=== PATIENT | female | born 1940 | race Caucasian/White ===

== ENCOUNTER 2019-08-25 09:31 | Inpatient (IN) | payer MEDICARE ==
[2019-08-25 11:15] LABS: APPEARANCE,URINE CLEAR; BILIRUBIN,URINE NEGATIVE (NEGATIVE); COLOR,URINE YELLOW; GLUCOSE, URINE NEGATIVE (NEGATIVE); KETONES,URINE NEGATIVE (NEGATIVE); LEUKOCYTE ESTERASE,URINE NEGATIVE (NEGATIVE); NITRITE,URINE NEGATIVE (NEGATIVE); PROTEIN,URINE NEGATIVE (NEGATIVE); URINE SPECIFIC GRAVITY 1.011; UROBILINOGEN,URINE NEGATIVE mg/dL (<2.0)
[2019-08-25] MEDS ORDERED: OXYCODONE-ACETAMINOPHEN 5-325 MG TABLET PO ONE (11:53)
[2019-08-25 12:09] LABS: ABSOLUTE BASOPHILS # (AUTO) 0.1 10^3/uL (0.0-0.2); ABSOLUTE LYMPHOCYTES (AUTO) 1.2 10^3/uL (0.5-4.7); ABSOLUTE MONOCYTES (AUTO) 0.9 10^3/uL (0.1-1.4); ABSOLUTE NEUT (AUTO) 10.6 10^3/uL (1.7-8.2); BASOPHILS % (AUTO) 0.4 % (0-2); EOSINOPHILS % (AUTO) 0.3 % (0-6); HEMOGLOBIN 14.5 g/dL (12.0-15.5); LYMPHOCYTES % (AUTO) 9.2 % (13-45); MEAN CORPUSCULAR HEMOGLOBIN 29.6 pg (27.0-33.4); MEAN CORPUSCULAR HGB CONC 33.7 g/dL (32.0-36.0); MEAN CORPUSCULAR VOLUME 88 fl (80-97); MONOCYTES % (AUTO) 7.1 % (3-13); PLATELET COUNT 374 10^3/uL (150-450); RED BLOOD COUNT 4.89 10^6/uL (3.72-5.28); RED CELL DISTRIBUTION WIDTH 14.4 % (11.5-14.0); TOTAL CELLS COUNTED % (AUTO) 100 %; WHITE BLOOD COUNT 12.7 10^3/uL (4.0-10.5)
[2019-08-25 12:47] LABS: ALBUMIN 4.1 g/dL (3.5-5.0); ALKALINE PHOSPHATASE 110 U/L (38-126); ANION GAP 8 (5-19); ASPARTATE AMINO TRANSFERASE 23 U/L (14-36); BILIRUBIN,DIRECT 0.1 mg/dL (0.0-0.4); BILIRUBIN,TOTAL 0.9 mg/dL (0.2-1.3); BLOOD UREA NITROGEN 12 mg/dL (7-20); CALCIUM 9.4 mg/dL (8.4-10.2); CARBON DIOXIDE 30 mmol/L (22-30); CHLORIDE 102 mmol/L (98-107); GLUCOSE 91 mg/dL (75-110); POTASSIUM 3.9 mmol/L (3.6-5.0); TOTAL PROTEIN 7.1 g/dL (6.3-8.2)
--- NOTE | 2019-08-25 13:04 | ER Document Report ---
Entered by ELISE CHÁVEZ SCRIBE 08/25/19 1149 Acting as scribe for:KAYLI ENRIQUEZ MD ED General - General Information source: Patient <KAYLI ENRIQUEZ - Last Filed: 08/25/19 17:18> <POONBARBIE - Last Filed: 08/25/19 19:54> - General Chief Complaint: Back Pain Stated Complaint: BACK PAIN Time Seen by Provider: 08/25/19 11:34 Primary Care Provider: SHOSHANA RIGGS NP [Primary Care Provider] - Follow up as needed Notes: Patient is a 78-year-old female who presents to the emergency department today with complaints of pain that originates in her buttocks and radiates down her bilateral legs. Patient states she has had this pain for 2 to 3 weeks. Prior to the pain beginning, the patient "[facility]" which is apparently quite a long distance and much more activity than she has ever done before. This was at the " at [facility]" fall festival. Patient was seen at an urgent care one week ago for this and was started on baclofen, gabapentin, and a steroid dose pack. Patient states she received minimal if any relief from the prednisone. She stopped taking the gabapentin on August 22, 2019 due to hallucinations. She did continue to take the baclofen. Her pain has been getting progressively worse, she has been using a walker but is unable to walk at all at this time due to her pain. (KAYLI ENRIQUEZ) - Related Data Allergies/Adverse Reactions: No Known Allergies Allergy (Unverified 08/25/19 09:47) Past Medical History - General Information source: Patient - Social History Smoking Status: Never Smoker Cigarette use (# per day): No Frequency of alcohol use: None Drug Abuse: None Lives with: Family Family History: Reviewed & Not Pertinent Patient has suicidal ideation: No Patient has homicidal ideation: No Past Surgical History: Reports: Hx Cholecystectomy, Hx Orthopedic Surgery - Right knee replacement May 2017, Left knee replacement March 2018 <KAYLI ENRIQUEZ - Last Filed: 08/25/19 17:18> Review of Systems - Review of Systems Constitutional: No symptoms reported EENT: No symptoms reported Cardiovascular: No symptoms reported Respiratory: No symptoms reported Gastrointestinal: No symptoms reported Genitourinary: No symptoms reported Female Genitourinary: No symptoms reported Musculoskeletal: See HPI, Other - buttock pain, bilateral leg pain Skin: No symptoms reported Hematologic/Lymphatic: No symptoms reported Neurological/Psychological: No symptoms reported -: Yes All other systems reviewed and negative <KAYLI ENRIQUEZ - Last Filed: 08/25/19 17:18> Physical Exam <KAYLI ENRIQUEZ - Last Filed: 08/25/19 17:18> - Vital signs Vitals: Temp Pulse BP Pulse Ox 97.9 F 67 194/82 H 100 08/25/19 09:48 08/25/19 09:48 08/25/19 09:48 08/25/19 09:48 - Notes Notes: Physical Exam: General: Alert, appears uncomfortable. HEENT: Normocephalic. Atraumatic. PERRL. Extraocular movements intact. Oropharynx clear. Neck: Supple. Non-tender. Respiratory: No respiratory distress. Clear and equal breath sounds bilaterally. Cardiovascular: Regular rate and rhythm. Abdominal: Normal Inspection. Non-tender. No distension. Normal Bowel Sounds. Back: No gross abnormalities. Extremities: Moves all four extremities. Upper extremities: Normal inspection. Normal ROM. Lower extremities: Right lateral thigh tenderness with palpation. Right anterior leg musculature tenderness with palpation. Left anterior thigh tenderness with palpation. Left thigh tenderness over the greater trochanter. No real tenderness over the SI joints or buttocks. Neurological: Normal cognition. AAOx4. Normal speech. Psychological: Normal affect. Normal Mood. Skin: Warm. Dry. Normal color. (KAYLI ENRIQUEZ) Course - Laboratory Result Diagrams: 08/25/19 11:59 08/25/19 11:59 - Diagnostic Test Radiology reviewed: Reports reviewed - MRI shows multilevel degenerative changes without any acute changes or significant stenoses. The gallbladder does appear distended with a large gallstone. - Transfer of Care Care transferred to following provider: Dr. Poon <KAYLI ENRIQUEZ - Last Filed: 08/25/19 17:18> - Laboratory Result Diagrams: 08/25/19 11:59 08/25/19 11:59 <BARBIE POON - Last Filed: 08/25/19 19:54> - Re-evaluation Re-evalutation: 08/25/19 14:23 Multiple family members are in the room at this time. They are reporting the patient has been hallucinating for the last few days. They state that even now in the room the patient is hallucinating. When I asked the patient specifically what she is seeing, she states that she can anticipate me coming in the room before coming in. That she sees people come in the room that that are close and red velvet who ended up going back out of the room. She allegedly began having these hallucinations on Sunday and stopped the Neurontin on that day. She had been prescribed a tapering dose of prednisone on last Sunday, along with baclofen and Neurontin. The Neurontin was a low dose at 300 mg every 8. She continues to take the baclofen. Her spouse reports last night she was hallucinating, and she reports seeing carpet in the lluvia and other nonsensical things. The daughter reports that the patient was incontinent of urine 3 times last night. She was complaining that she could not feel her legs in the ambulance ride to the hospital. Current physical exam findings do not support these complaints. They are adamant that she cannot go back home with these problems. 08/25/19 17:10 The family wanted to demonstrate for me how the patient is unable to walk, they tried to get her up to a walking position without success. They got her to sit on the edge of the bed with considerable assistance, and trying to get her up to a standing position was not possible due to the pain the patient was having. The patient stated that despite the Percocet the pain was so severe she was unable to stand up even with the assistance. She does live in a home that has several stairs to go up to get inside. 08/25/19 17:20 (KAYLI ENRIQUEZ) 08/25/19 19:50 Patient reevaluated at this time. She is unable to bear weight. Gallbladder ultrasound showed only presence of a stone with no signs of acute inflammatory changes. Findings are discussed with the on-call hospitalist Dr. Juliano Cabrera who agrees to admit patient for pain management and physiotherapy. (BARBIE ZENG) - Vital Signs Vital signs: Temp Pulse Resp BP Pulse Ox 98.1 F 63 18 168/70 H 94 08/25/19 18:53 08/25/19 18:53 08/25/19 18:53 08/25/19 18:53 08/25/19 18:53 - Laboratory Laboratory results interpreted by me: 08/25/19 11:59 WBC 12.7 H RDW 14.4 H Lymph % (Auto) 9.2 L Absolute Neuts (auto) 10.6 H Seg Neutrophils % 83.0 H - Transfer of Care Notes: 08/25/19 17:18 Pending GB US and re-eval. I suspect she will be difficult to be discharged due to her inability to ambulate and c/o hallucinations. (KAYLI ENRIQUEZ) Discharge <KAYLI ENRIQUEZ - Last Filed: 08/25/19 17:18> - Discharge Admitting Provider: Rick (Hospitalist) <BARBIE POON - Last Filed: 08/25/19 19:54> - Discharge Clinical Impression: Overuse syndrome of legs, Sacral back pain, Ambulatory dysfunction Degenerated intervertebral disc Qualifiers: Spinal region: lumbar Qualified Code(s): M51.36 - Other intervertebral disc degeneration, lumbar region Condition: Stable Disposition: ADMITTED INPATIENT Referrals: SHOSHANA RIGGS EXECUTIVE ASSISTANT [Primary Care Provider] - Follow up as needed Scribe Attestation: 08/25/19 14:27 I personally performed the services described in the documentation, reviewed and edited the documentation which was dictated to the scribe in my presence, and it accurately records my words and actions. (KAYLI ENRIQUEZ) I personally performed the services described in the documentation, reviewed and edited the documentation which was dictated to the scribe in my presence, and it accurately records my words and actions.
[2019-08-25 13:48] LABS: CREATINE KINASE 86 U/L (30-135)
--- NOTE | 2019-08-25 16:12 | RADIOLOGY REPORT (SQ) ---
EXAM DESCRIPTION: MRI LUMBAR SPINE WITHOUT COMPLETED DATE/TIME: 08/25/2019 3:54 pm REASON FOR STUDY: Progressive neurological deficit, urinary incontin COMPARISON: None. TECHNIQUE: Sagittal and Axial imaging includes T1, T2, STIR and gradient echo sequences. Coronal T2/ HASTE imaging. LIMITATIONS: None. FINDINGS: VISUALIZED UPPER ABDOMEN: Limited evaluation. Distended gallbladder with 2.5 cm gallston e. SEGMENTATION: No transitional anatomy. The lowest well-developed disc space is labeled L5-S1. ALIGNMENT: Mild scoliosis. VERTEBRAE: Intact. BONE MARROW: No marrow replacement. Multilevel reactive endplate signal. DISC SIGNAL: Decreased height and signal. POSTERIOR ELEMENTS: Generally intact. No pars defect evident. HARDWARE: None in the spine. CORD AND CONUS: Normal in size and signal intensity. Conus at the appropriate level. SOFT TISSUES: No aortic aneurysm seen. No bulky retroperitoneal adenopathy or mass. No paraspinal mas s or fluid. L1-L2: Mild diffuse posterior disc bulge. Mild facet arthropathy. No significant spinal stenosis or exit foraminal stenosis. L2-L3: Mild diffuse posterior disc bulge. Mild to moderate facet arthropathy. No significant spinal stenosis. Mild right exit foraminal stenosis. L3-L4: Mild diffuse posterior disc bulge. Moderate facet arthropathy. Mild spinal stenosis and mode rate right exit foraminal stenosis. L4-L5: No significant disc bulge. Moderate facet arthropathy. No significant spinal stenosis. Bord enrrique exit foraminal stenosis. L5-S1: Mild diffuse posterior disc bulge. Mild facet arthropathy. No significant spinal stenosis. Mild to moderate bilateral exit foraminal stenosis. LOWER THORACIC: Incompletely imaged. No stenosis seen. SACRUM: Visualized upper sacrum intact. OTHER: No other significant findings. IMPRESSION: 1. MULTILEVEL CHRONIC DEGENERATIVE CHANGES DESCRIBED. NO APPARENT ACUTE FINDINGS. NO HIGH-GRADE STENOSIS. 2. GALLBLADDER APPEARS SOMEWHAT DISTENDED WITH A LARGE GALLSTONE. NOT COMPLETELY IMAGED. TECHNICAL DOCUMENTATION: JOB ID: [id number] [email or web address]- All Rights Reserved Reading location - IP/workstation name: [email or web address]
--- NOTE | 2019-08-25 19:22 | RADIOLOGY REPORT (SQ) ---
EXAM DESCRIPTION: U/S ABDOMEN LIMITED W/O DOP COMPLETED DATE/TIME: 08/25/2019 5:43 pm REASON FOR STUDY: Large gallstone,distended GB,leukocytosis COMPARISON: None. TECHNIQUE: Dynamic and static grayscale images acquired of the abdomen and recorded on PACS. Additio nal selected color Doppler and spectral images recorded. LIMITATIONS: Bowel gas. FINDINGS: PANCREAS: Obscured by bowel gas. LIVER: No masses. Echotexture increased consistent with fatty infiltration. LIVER VASCULATURE: Normal directional flow of the main portal vein and hepatic veins. GALLBLADDER: Multiple large gallstones measuring up to 2.5 cm. Moderate sludge. Normal gallbladder wall thickness. No pericholecystic fluid. ULTRASOUND-DETECTED CORRALES'S SIGN: Negative. INTRAHEPATIC DUCTS AND COMMON DUCT: CBD and intrahepatic ducts normal caliber. No filling defects. INFERIOR VENA CAVA: Normal flow. AORTA: No aneurysm identified. RIGHT KIDNEY: Normal size. Normal echogenicity. No solid or suspicious masses. No hydronephros is. No calcifications. PERITONEAL AND RIGHT PLEURAL SPACE: No ascites or effusions. OTHER: No other significant findings. IMPRESSION: Multiple large gallstones measuring up to 2.5 cm. Moderate sludge. Normal gallbladder w all thickness. No pericholecystic fluid. Fatty liver. TECHNICAL DOCUMENTATION: JOB ID: [id number] [id number] [employer]- All Rights Reserved Reading location - IP/workstation name: [email or web address]
[2019-08-25] MEDS ORDERED: ACETAMINOPHEN 325 MG TABLET PO PRN (19:50)
[2019-08-25] MEDS ORDERED: MAGNESIUM HYDROXIDE SUSP 30 ML UDCUP PO PRN (19:50)
[2019-08-25] MEDS ORDERED: MAG HYDROX/AL HYDROX/SIMETH SUSP 30 ML UDCUP PO PRN (19:50)
[2019-08-25] MEDS: HEPARIN SOD (PORCINE) 5,000 UNIT/ML 1 ML VIAL SUBCUT SCH (22:28)
[2019-08-25] MEDS: DOCUSATE SODIUM 100 MG CAPSULE PO SCH (22:30)
[2019-08-26] MEDS ORDERED: INFLUENZA QUAD (6MOS+) 2019-20 VAC 0.5 ML SYR IM ONE (01:23)
[2019-08-26] MEDS: HEPARIN SOD (PORCINE) 5,000 UNIT/ML 1 ML VIAL SUBCUT SCH ×3 (06:07→21:54)
--- NOTE | 2019-08-26 06:46 | PDOC H&P ---
History of Present Illness Admission Date/PCP: 08/25/19 19:58 SHOSHANA RIGGS NP Patient complains of: Bilateral leg pain History of Present Illness: JACK URIBE is a 78 year old female with a medical history of hypertension, osteoarthritis and hypothyroidism. She presents with radiating lower back pain to the legs bilaterally and subsequent inability to bear weight or ambulate. She denies acute injury but has recently discontinued a trial of steroids and gabapentin secondary to hallucination. She is continue to take baclofen as needed. In the emergency room imaging reveals severe degenerative joint disease only however she is also found to have hypertensive urgency with a systolic blood pressure of 194/82 with tachycardia. She is referred to the hospitalist for observation. Past Medical History Cardiac Medical History: Reports: Hypertension Endocrine Medical History: Reports: Hypothyroidism Musculoskeltal Medical History: Reports: Arthritis Psychiatric Medical History: Denies: Depression Past Surgical History Past Surgical History: Reports: Cholecystectomy, Orthopedic Surgery - Right knee replacement May 2017, Left knee replacement March 2018 Social History Information Source: Patient, [facility] Records Lives with: Family Smoking Status: Never Smoker Electronic Cigarette use?: No Frequency of Alcohol Use: None Hx Recreational Drug Use: No Drugs: None Hx Prescription Drug Abuse: No - Advance Directive Resuscitation Status: Full Code Family History Family History: Hypertension Parental Family History Reviewed: Yes Children Family History Reviewed: Yes Sibling(s) Family History Reviewed.: Yes Medication/Allergy Home Medications: Baclofen [Baclofen 10 mg Tablet] 10 mg PO TID 08/26/19 Gabapentin [Neurontin 300 mg Capsule] 300 mg PO TID 08/26/19 Levothyroxine Sodium [Synthroid] 175 mcg PO QAM 08/26/19 Allergies/Adverse Reactions: No Known Allergies Allergy (Unverified 08/25/19 09:47) Review of Systems Constitutional: ABSENT: chills, fever(s), headache(s), weight gain, weight loss Eyes: ABSENT: visual disturbances Ears: ABSENT: hearing changes Cardiovascular: ABSENT: chest pain, dyspnea on exertion, edema, orthropnea, palpitations Respiratory: ABSENT: cough, hemoptysis Gastrointestinal: ABSENT: abdominal pain, constipation, diarrhea, hematemesis, hematochezia, nausea, vomiting Genitourinary: ABSENT: dysuria, hematuria Musculoskeletal: ABSENT: joint swelling Integumentary: ABSENT: rash, wounds Neurological: ABSENT: abnormal gait, abnormal speech, confusion, dizziness, focal weakness, syncope Psychiatric: ABSENT: anxiety, depression, homidical ideation, suicidal ideation Endocrine: ABSENT: cold intolerance, heat intolerance, polydipsia, polyuria Hematologic/Lymphatic: ABSENT: easy bleeding, easy bruising Physical Exam Vital Signs: Temp Pulse Resp BP Pulse Ox 98.3 F 59 L 16 151/61 H 98 08/25/19 23:50 08/25/19 23:50 08/25/19 23:50 08/25/19 23:50 08/25/19 23:50 Intake & Output 08/24/19 08/25/19 08/26/19 11:59 11:59 11:59 Output Total 730 Balance -730 Weight 79.9 kg 76.6 kg General appearance: PRESENT: cooperative, mild distress, well-developed, well- nourished Head exam: PRESENT: atraumatic, normocephalic Eye exam: PRESENT: conjunctiva pink, EOMI, PERRLA. ABSENT: scleral icterus Ear exam: PRESENT: normal external ear exam Mouth exam: PRESENT: moist, tongue midline Neck exam: ABSENT: carotid bruit, JVD, lymphadenopathy, thyromegaly Respiratory exam: PRESENT: clear to auscultation young. ABSENT: rales, rhonchi, wheezes Cardiovascular exam: PRESENT: RRR. ABSENT: diastolic murmur, rubs, systolic murmur Pulses: PRESENT: normal dorsalis pedis pul Vascular exam: PRESENT: normal capillary refill GI/Abdominal exam: PRESENT: normal bowel sounds, soft. ABSENT: distended, guarding, mass, organolmegaly, rebound, tenderness Rectal exam: PRESENT: deferred Extremities exam: PRESENT: full ROM, tenderness, +1 edema. ABSENT: calf tender ness, clubbing, pedal edema Musculoskeletal exam: PRESENT: full ROM - Limited by pain, tenderness. ABSENT: ambulatory, deformity, dislocation Neurological exam: PRESENT: alert, awake, oriented to person, oriented to place, oriented to time, oriented to situation, CN II-XII grossly intact. ABSENT: motor sensory deficit Psychiatric exam: PRESENT: appropriate affect, normal mood. ABSENT: homicidal ideation, suicidal ideation Skin exam: PRESENT: dry, intact, warm. ABSENT: cyanosis, rash Results Laboratory Results: 08/25/19 11:59 08/25/19 11:59 08/25/19 08/25/19 08/25/19 10:31 11:59 11:59 WBC 12.7 H RBC 4.89 Hgb 14.5 Hct 43.0 MCV 88 MCH 29.6 MCHC 33.7 RDW 14.4 H Plt Count 374 Seg Neutrophils % 83.0 H Sodium 139.9 Potassium 3.9 Chloride 102 Carbon Dioxide 30 Anion Gap 8 BUN 12 Creatinine 0.76 Est GFR ( Amer) > 60 Glucose 91 Calcium 9.4 Total Bilirubin 0.9 AST 23 Alkaline Phosphatase 110 Total Protein 7.1 Albumin 4.1 TSH Urine Color YELLOW Urine Appearance CLEAR Urine pH 6.0 Ur Specific Vevay 1.011 Urine Protein NEGATIVE Urine Glucose (UA) NEGATIVE Urine Ketones NEGATIVE Urine Blood NEGATIVE Urine Nitrite NEGATIVE Ur Leukocyte Esterase NEGATIVE Urine WBC (Auto) 1 Urine RBC (Auto) 08/25/19 08/25/19 11:59 11:59 WBC RBC Hgb Hct MCV MCH MCHC RDW Plt Count Seg Neutrophils % Sodium Potassium Chloride Carbon Dioxide Anion Gap BUN Creatinine Est GFR ( Amer) Glucose Calcium Total Bilirubin AST Alkaline Phosphatase Total Protein Albumin TSH 24.80 H Urine Color Cancelled Urine Appearance Cancelled Urine pH Cancelled Ur Specific Vevay Cancelled Urine Protein Cancelled Urine Glucose (UA) Cancelled Urine Ketones Cancelled Urine Blood Cancelled Urine Nitrite Cancelled Ur Leukocyte Esterase Cancelled Urine WBC (Auto) Cancelled Urine RBC (Auto) Cancelled 08/25/19 08/25/19 11:59 11:59 Creatine Kinase 86 CK-MB (CK-2) 3.13 Impressions: Lumbar Spine MRI 08/25/19 14:22 IMPRESSION: 1. MULTILEVEL CHRONIC DEGENERATIVE CHANGES DESCRIBED. NO APPARENT ACUTE FINDINGS. NO HIGH-GRADE STENOSIS. 2. GALLBLADDER APPEARS SOMEWHAT DISTENDED WITH A LARGE GALLSTONE. NOT COMPLETELY IMAGED. Abdomen Ultrasound 08/25/19 16:43 IMPRESSION: Multiple large gallstones measuring up to 2.5 cm. Moderate sludge. Normal gallbladder wall thickness. No pericholecystic fluid. Fatty liver. Assessment and Plan - Diagnosis (1) Hypertensive urgency Is this a current diagnosis for this admission?: Yes Plan: Outpatient regiment, optimize pain control, hydralazine and Lopressor PRN (2) Hypothyroidism Is this a current diagnosis for this admission?: Yes Plan: Follow-up TSH (3) Ambulatory dysfunction Is this a current diagnosis for this admission?: Yes Plan: Physical therapy evaluation (4) Degenerated intervertebral disc Qualifiers: Spinal region: lumbar Qualified Code(s): M51.36 - Other intervertebral disc degeneration, lumbar region Is this a current diagnosis for this admission?: Yes Plan: Trial IV Toradol (5) Sacral back pain Is this a current diagnosis for this admission?: Yes Plan: Trial Toradol, physical therapy, consider pain management consult. - Time Time Spent with patient: 15-24 minutes - Inpatient Certification Medical Necessity: Need Close Monitoring Due to Risk of Patient Decompensation
[2019-08-26 07:02] LABS: ABSOLUTE BASOPHILS # (AUTO) 0.1 10^3/uL (0.0-0.2); ABSOLUTE EOSINOPHILS # (AUTO) 0.1 10^3/uL (0.0-0.6); ABSOLUTE LYMPHOCYTES (AUTO) 1.2 10^3/uL (0.5-4.7); ABSOLUTE MONOCYTES (AUTO) 0.7 10^3/uL (0.1-1.4); ABSOLUTE NEUT (AUTO) 7.6 10^3/uL (1.7-8.2); BASOPHILS % (AUTO) 0.9 % (0-2); EOSINOPHILS % (AUTO) 1.4 % (0-6); HEMATOCRIT 39.6 % (36.0-47.0); HEMOGLOBIN 13.6 g/dL (12.0-15.5); LYMPHOCYTES % (AUTO) 12.6 % (13-45); MEAN CORPUSCULAR HEMOGLOBIN 30.3 pg (27.0-33.4); MEAN CORPUSCULAR HGB CONC 34.3 g/dL (32.0-36.0); MEAN CORPUSCULAR VOLUME 88 fl (80-97); MONOCYTES % (AUTO) 7.2 % (3-13); PLATELET COUNT 338 10^3/uL (150-450); RED BLOOD COUNT 4.48 10^6/uL (3.72-5.28); RED CELL DISTRIBUTION WIDTH 14.8 % (11.5-14.0); SEGMENTED NEUTROPHILS % (AUTO) 77.9 % (42-78); TOTAL CELLS COUNTED % (AUTO) 100 %; WHITE BLOOD COUNT 9.7 10^3/uL (4.0-10.5)
[2019-08-26] MEDS ORDERED: (PENDING PHARMACY ID) (Levothyroxine Sodium [Synthroid] 175 MCG) PO SCH (08:00)
[2019-08-26 08:41] LABS: FREE T3 1.42 pg/mL (2.77-5.27); FREE T4 (FREE THYROXINE) 0.38 ng/dL (0.78-2.19)
[2019-08-26] MEDS: LEVOTHYROXINE SODIUM 0.1 MG TABLET PO SCH (09:15)
[2019-08-26] MEDS: DOCUSATE SODIUM 100 MG CAPSULE PO SCH ×2 (09:15→17:38)
[2019-08-26] MEDS: LEVOTHYROXINE SODIUM 0.075 MG TABLET PO SCH (09:15)
[2019-08-26] MEDS: HYDRALAZINE HCL INJ/PF 20 MG/1 ML SDV IV PRN (09:16)
[2019-08-26] MEDS: LISINOPRIL 10 MG TABLET PO SCH (10:10)
--- NOTE | 2019-08-26 13:02 | PDOC PROGRESS REPORT ---
Subjective Progress Note for:: 08/26/19 Subjective:: JACK URIBE is a 78 year old female with a medical history of hypertension, osteoarthritis and hypothyroidism. She presents with radiating lower back pain to the legs bilaterally and subsequent inability to bear weight or ambulate. She denies acute injury but has recently discontinued a trial of steroids and gabapentin secondary to hallucination. She is continue to take baclofen as needed. In the emergency room imaging reveals severe degenerative joint disease only however she is also found to have hypertensive urgency with a systolic blood pressure of 194/82 with tachycardia. She is referred to the hospitalist for observation. 08/26/2019. No acute events overnight. Patient complaining of persistent low back pain. Denies any fever, chills, nausea, vomiting, diarrhea, constipation or any urinary symptoms. and daughter present at the room stating that patient has been nonambulatory due to worsening lower back pain and they would like her to be placed in the short-term rehab. Reason For Visit: HTN URGENCY, INTRACTABLE PAIN, GAIT DISFUNCTION Physical Exam Vital Signs: Temp Pulse Resp BP Pulse Ox 97.6 F 70 20 193/76 H 98 08/26/19 07:00 08/26/19 07:00 08/26/19 07:00 08/26/19 07:00 08/26/19 07:00 Intake & Output 08/25/19 08/26/19 08/27/19 06:59 06:59 06:59 Output Total 880 Balance -880 Weight 76.6 kg General appearance: PRESENT: obese Eye exam: PRESENT: conjunctiva pink, EOMI, PERRLA. ABSENT: scleral icterus Respiratory exam: PRESENT: clear to auscultation young. ABSENT: rales, rhonchi, wheezes Cardiovascular exam: PRESENT: RRR. ABSENT: diastolic murmur, rubs, systolic murmur GI/Abdominal exam: PRESENT: normal bowel sounds, soft. ABSENT: distended, guarding, mass, organolmegaly, rebound, tenderness Musculoskeletal exam: PRESENT: tenderness - Diffuse lower back tenderness. Skin exam: PRESENT: dry, intact, warm. ABSENT: cyanosis, rash Results Laboratory Results: 08/26/19 06:35 08/25/19 11:59 08/25/19 08/26/19 08/26/19 11:59 06:35 06:35 WBC 9.7 RBC 4.48 Hgb 13.6 Hct 39.6 MCV 88 MCH 30.3 MCHC 34.3 RDW 14.8 H Plt Count 338 Seg Neutrophils % 77.9 TSH 24.80 H Free T4 0.38 L Free T3 pg/mL 1.42 L 08/25/19 08/25/19 11:59 11:59 Creatine Kinase 86 CK-MB (CK-2) 3.13 Impressions: Lumbar Spine MRI 08/25/19 14:22 IMPRESSION: 1. MULTILEVEL CHRONIC DEGENERATIVE CHANGES DESCRIBED. NO APPARENT ACUTE FINDINGS. NO HIGH-GRADE STENOSIS. 2. GALLBLADDER APPEARS SOMEWHAT DISTENDED WITH A LARGE GALLSTONE. NOT COMPLETELY IMAGED. Abdomen Ultrasound 08/25/19 16:43 IMPRESSION: Multiple large gallstones measuring up to 2.5 cm. Moderate sludge. Normal gallbladder wall thickness. No pericholecystic fluid. Fatty liver. Assessment and Plan - Diagnosis (1) Hypertensive urgency Is this a current diagnosis for this admission?: Yes Plan: Not optimized with improving since admission. Continue lisinopril 40 mg p.o. daily. Hydralazine and Lopressor PRN. Adjust dosage as needed. Outpatient PCP follow-up. (2) Hypothyroidism Is this a current diagnosis for this admission?: Yes Plan: Patient endorses remote history of thyroidectomy x >30 years. Does not remember if she had cancer or not. TSH 24.8, free T4 0.38, free T3 1.42. Patient reports compliance not sure if she is taking it properly. Stating TSH in April was around 10. Home meds are: Levothyroxine 175 MCG. Restart home meds. Outpatient PCP and endocrinology follow-up. (3) DJD (degenerative joint disease) Qualifiers: Spinal region: lumbosacral Spinal osteoarthritis complication: without myelopathy or radiculopathy Is this a current diagnosis for this admission?: Yes Plan: 08/25/2019. MRI lumbar spine: Multilevel chronic degenerative changes. No acute findings. No high-grade stenosis. PT/OT. Opioid and non-opioid analgesics. Minimize opioids to reduce risk of falling. (4) Ambulatory dysfunction Is this a current diagnosis for this admission?: Yes Plan: Due to severe DJD of lumbar spine. PT consulted. Possible outpatient short-term rehab. Discharge planning consulted.
--- NOTE | 2019-08-26 13:36 | RADIOLOGY REPORT (SQ) ---
EXAM DESCRIPTION: CT HEAD WITHOUT COMPLETED DATE/TIME: 08/26/2019 1:17 pm REASON FOR STUDY: AMS E03.8 OTHER SPECIFIED HYPOTHYROIDISM COMPARISON: None. TECHNIQUE: Axial images acquired through the brain without intravenous contrast. Images reviewed wi th bone, brain and subdural windows. Additional sagittal and coronal reconstructions were generated. Images stored on PACS. All CT scanners at this facility use dose modulation, iterative reconstruction, and/or weight based d osing when appropriate to reduce radiation dose to as low as reasonably achievable (ALARA). [facility]: Dose Right [facility]: CareDose [facility]: Dose Right [facility]: Teradose 4D [facility]: Smart [employer] RADIATION DOSE: CT Rad equipment meets quality standard of care and radiation dose reduction techniq ues were employed. CTDIvol: 48.5 mGy. DLP: 903 mGy-cm. mGy. LIMITATIONS: None. FINDINGS: VENTRICLES: Normal size and contour. CEREBRUM: No masses. No hemorrhage. No midline shift. No evidence for acute infarction. Few scatte red areas of low density in the white matter most likely chronic small vessel ischemic changes. CEREBELLUM: No masses. No hemorrhage. No alteration of density. No evidence for acute infarction. EXTRAAXIAL SPACES: No fluid collections. No masses. ORBITS AND GLOBE: No intra- or extraconal masses. Normal contour of globe without masses. CALVARIUM: No fracture. PARANASAL SINUSES: No fluid or mucosal thickening. SOFT TISSUES: No mass or hematoma. OTHER: No other significant finding. IMPRESSION: MILD CHRONIC MICROVASCULAR ISCHEMIA. NO ACUTE IMAGING FINDINGS IN THE BRAIN. EVIDENCE OF ACUTE STROKE: NO. COMMENT: Quality ID # [id number]: Final reports with documentation of one or more dose reduction techniques (e.g., Automated exposure control, adjustment of the mA and/or kV according to patient size, use of iterative reconstruction technique) TECHNICAL DOCUMENTATION: JOB ID: [id number] [employer]- All Rights Reserved Reading location - IP/workstation name: [email or web address]
[2019-08-26] MEDS ORDERED: BACLOFEN 10 MG TABLET PO SCH (14:00)
[2019-08-26] MEDS ORDERED: GABAPENTIN 300 MG CAPSULE PO SCH (14:00)
[2019-08-26] MEDS: LIDOCAINE 5% (700 MG) TRANSDERMAL ADH..PATCH TP SCH (14:21)
[2019-08-26] MEDS ORDERED: MECLIZINE HCL 12.5 MG TABLET PO PRN (14:34)
[2019-08-26] MEDS ORDERED: MECLIZINE HCL 12.5 MG TABLET PO ONE (15:30)
[2019-08-26] MEDS ORDERED: LORAZEPAM INJ 2 MG/1 ML VIAL IV ONE (17:00)
[2019-08-26] MEDS: KETOROLAC TROMETHAMINE INJ/PF 30 MG/1 ML SDV IV PRN (17:46)
[2019-08-27] MEDS: HEPARIN SOD (PORCINE) 5,000 UNIT/ML 1 ML VIAL SUBCUT SCH ×3 (05:29→21:40)
[2019-08-27] MEDS: LEVOTHYROXINE SODIUM 0.1 MG TABLET PO SCH (08:12)
[2019-08-27] MEDS: LEVOTHYROXINE SODIUM 0.075 MG TABLET PO SCH (08:12)
[2019-08-27] MEDS: LISINOPRIL 10 MG TABLET PO SCH (10:31)
[2019-08-27] MEDS: AMLODIPINE BESYLATE 5 MG TABLET PO SCH (10:32)
[2019-08-27] MEDS: LIDOCAINE 5% (700 MG) TRANSDERMAL ADH..PATCH TP SCH (10:32)
[2019-08-27] MEDS: CHOLECALCIFEROL (D3) 1,000 UNIT (25 MCG) TABLET PO SCH (10:32)
[2019-08-27] MEDS: DOCUSATE SODIUM 100 MG CAPSULE PO SCH ×2 (10:32→17:05)
--- NOTE | 2019-08-27 10:38 | PDOC PROGRESS REPORT ---
Subjective Progress Note for:: 08/27/19 Subjective:: JACK URIBE is a 78 year old female with a medical history of hypertension, osteoarthritis and hypothyroidism. She presents with radiating lower back pain to the legs bilaterally and subsequent inability to bear weight or ambulate. She denies acute injury but has recently discontinued a trial of steroids and gabapentin secondary to hallucination. She is continue to take baclofen as needed. In the emergency room imaging reveals severe degenerative joint disease only however she is also found to have hypertensive urgency with a systolic blood pressure of 194/82 with tachycardia. She is referred to the hospitalist for observation. 08/26/2019. No acute events overnight. Patient complaining of persistent low back pain. Denies any fever, chills, nausea, vomiting, diarrhea, constipation or any urinary symptoms. and daughter present at the room stating that patient has been nonambulatory due to worsening lower back pain and they would like her to be placed in the short-term rehab. 08/27/2019. No acute events overnight. Patient is still altered. Patient is alert and oriented x2, has difficulty remembering today, is able to hold a con versation however sometimes her conversation becomes nonsensical, back pain improving since being started on topical lidocaine, denies any fever, chills, nausea, vomiting, diarrhea, constipation or any urinary symptoms. Reason For Visit: HTN URGENCY, INTRACTABLE PAIN, GAIT DISFUNCTION Physical Exam Vital Signs: Temp Pulse Resp BP Pulse Ox 97.4 F 71 18 174/71 H 100 08/27/19 08:07 08/27/19 08:07 08/26/19 23:00 08/27/19 08:07 08/27/19 08:07 Intake & Output 08/26/19 08/27/19 08/28/19 06:59 06:59 06:59 Intake Total 702 Output Total 880 200 Balance -880 502 Weight 76.6 kg 76.6 kg General appearance: PRESENT: no acute distress, well-developed, well-nourished Respiratory exam: PRESENT: clear to auscultation young. ABSENT: rales, rhonchi, wheezes Cardiovascular exam: PRESENT: RRR. ABSENT: diastolic murmur, rubs, systolic murmur Pulses: PRESENT: normal dorsalis pedis pul GI/Abdominal exam: PRESENT: normal bowel sounds, soft. ABSENT: distended, guarding, mass, organolmegaly, rebound, tenderness Musculoskeletal exam: PRESENT: tenderness - Diffuse lower back tenderness. Neurological exam: PRESENT: alert, awake, oriented to person, oriented to place, CN II-XII grossly intact, motor sensory deficit Skin exam: PRESENT: dry, intact, warm. ABSENT: cyanosis, rash Results Laboratory Results: 08/26/19 06:35 08/25/19 11:59 08/25/19 08/25/19 11:59 11:59 Creatine Kinase 86 CK-MB (CK-2) 3.13 Impressions: Lumbar Spine MRI 08/25/19 14:22 IMPRESSION: 1. MULTILEVEL CHRONIC DEGENERATIVE CHANGES DESCRIBED. NO APPARENT ACUTE FINDINGS. NO HIGH-GRADE STENOSIS. 2. GALLBLADDER APPEARS SOMEWHAT DISTENDED WITH A LARGE GALLSTONE. NOT COMPLETELY IMAGED. Abdomen Ultrasound 08/25/19 16:43 IMPRESSION: Multiple large gallstones measuring up to 2.5 cm. Moderate sludge. Normal gallbladder wall thickness. No pericholecystic fluid. Fatty liver. Head CT 08/26/19 00:00 IMPRESSION: MILD CHRONIC MICROVASCULAR ISCHEMIA. NO ACUTE IMAGING FINDINGS IN THE BRAIN. EVIDENCE OF ACUTE STROKE: NO. Assessment and Plan - Diagnosis (1) Altered mental status Qualifiers: Altered mental status type: disorientation Qualified Code(s): R41.0 - Disorientation, unspecified Is this a current diagnosis for this admission?: Yes Plan: Acute mental status changes. Could be medication induced as patient was started on baclofen and gabapentin very recently. Presented with TSH of 24. Unsure if this could be the reason for her altered mental status. Yesterday she was complaining of disequilibrium. On physical examination no vertigo or any focal neurological deficits appreciated. CT head on admission negative. Hold gabapentin and baclofen. We will get MRI/MRA brain to rule out any stroke. Continue fall, seizure precautions. Avoid benzos, opiates or any [employer] affecting meds. (2) Hypertensive urgency Is this a current diagnosis for this admission?: Yes Plan: Improving. Not optimized with improving since admission. Home meds are lisinopril 40 mg p.o. daily. Continue lisinopril 40 mg p.o. daily, amlodipine 5 mg daily. Hydralazine and Lopressor PRN. Adjust dosage as needed. Outpatient PCP follow-up. (3) Hypothyroidism Is this a current diagnosis for this admission?: Yes Plan: Patient endorses remote history of thyroidectomy x >30 years. Does not remember if she had cancer or not. TSH 24.8, free T4 0.38, free T3 1.42. Patient reports compliance not sure if she is taking it properly. Stating TSH in April was around 10. Home meds are: Levothyroxine 175 MCG. Restart home meds. Outpatient PCP and endocrinology follow-up. (4) DJD (degenerative joint disease) Qualifiers: Spinal region: lumbosacral Spinal osteoarthritis complication: without myelopathy or radiculopathy Is this a current diagnosis for this admission?: Yes Plan: 08/25/2019. MRI lumbar spine: Multilevel chronic degenerative changes. No acute findings. No high-grade stenosis. PT/OT. Opioid and non-opioid analgesics. Minimize opioids to reduce risk of falling. (5) Ambulatory dysfunction Is this a current diagnosis for this admission?: Yes Plan: Due to severe DJD of lumbar spine. PT consulted. Possible outpatient short-term rehab. Discharge planning consulted.
[2019-08-27] MEDS ORDERED: LORAZEPAM INJ 2 MG/1 ML VIAL IV ONE (11:00)
--- NOTE | 2019-08-27 12:09 | RADIOLOGY REPORT (SQ) ---
EXAM DESCRIPTION: MRA HEAD WITHOUT COMPLETED DATE/TIME: 08/27/2019 11:57 am REASON FOR STUDY: confusion E03.8 OTHER SPECIFIED HYPOTHYROIDISM COMPARISON: None. TECHNIQUE: Axial 3-D [id number] acquisition imaging performed through the brain in the area of t he [place]. Images reformatted using 3-D MIPS. LIMITATIONS: None. FINDINGS: SOURCE IMAGES: No unexpected findings on source images. No large masses. 3-D MIP: No aneurysm. No occlusions. No significant stenosis. OTHER: No other significant finding. IMPRESSION: NORMAL MRA OF THE [place] OF [place]. TECHNICAL DOCUMENTATION: JOB ID: [id number] [employer]- All Rights Reserved Reading location - IP/workstation name: [email or web address]
--- NOTE | 2019-08-27 12:09 | RADIOLOGY REPORT (SQ) ---
EXAM DESCRIPTION: MRI HEAD WITHOUT COMPLETED DATE/TIME: 08/27/2019 11:57 am REASON FOR STUDY: Confusion E03.8 OTHER SPECIFIED HYPOTHYROIDISM COMPARISON: CT brain dated 08/26/2019 TECHNIQUE: Multiplanar imaging includes non-contrasted T1, T2, FLAIR, and diffusion with ADC map seq uences. Images stored on PACS. LIMITATIONS: None. FINDINGS: ANATOMY: No anomalies. Normal vascular flow voids. Pituitary fossa normal. CSF SPACES: Normal in size and contour. No hemorrhage. CEREBRUM: Sulci and gyri normal in size and contour. Normal white matter signal on FLAIR imaging. No evidence of hemorrhage, mass, or extraaxial fluid collection. There is a small CSF cyst in the late ral aspect of the right basal ganglia. POSTERIOR FOSSA: No signal alteration. No hemorrhage. No edema, masses or mass effect. Internal doug tory canals, cerebello-pontine angles, mastoids normal. DIFFUSION IMAGING: Negative for acute or sub-acute infarction. ORBITS: No masses. Globes normal. PARANASAL SINUSES: No fluid levels. Mucosa normal. OTHER: No other significant finding. IMPRESSION: Age-appropriate MRI of the brain without contrast. EVIDENCE OF ACUTE STROKE: NO. TECHNICAL DOCUMENTATION: JOB ID: [id number] [employer]- All Rights Reserved Reading location - IP/workstation name: [email or web address]
--- NOTE | 2019-08-27 18:07 | Physician Advisory Note ---
Physician Advisor ProgressNote .: Pursuant to the plan for Marla Briggs, I have reviewed the medical record for this patient. Physician Advisor Statement: Attending, please clarify in documentation: 1. How much of her current findings are acute, & what is her baseline functioning: - mental function - any confusion or memory impairment at baseline? any disorientation at baseline? Ever had hallucinations before? - physical function - - incontinence/urinary retention - is this new? likely due to specific recent med, or due to constipation from recent med, or ...? *Please comment each day on that day's function r.e. each of these issues that you consider a problem needing hospital care/monitoring. 2. Dx for her confusion -can you be more specific than "disorientation/AMS" ? Such as: (A) "acute toxic encephalopathy due to " [a particular med], or (B) "acute metabolic encephalopathy due to ____" [uncontrolled hypothyroidism? infxn? urinary retention? delirium due to ? ...], or (C) "delirium due to underlying psychiatric (dementia or emotional) disorder, without encephalopathy"?, or ....? - What is felt to be most likely underlying cause of her presenting confusion? (if not already answered w/above) - Is her current mental status worsening 08/27 likely due to this same underlying issue, or a lethargy side effect of Ativan, or ...? 3. Muscle weakness, generalized - Acute or Chronic? Is this another issue that concerns you? Likely dx/cause? 4. Pain in BLEs - what is likely dx/cause? 5. Overall, each day, please make it clear which of her current clinical issues CONCERN you, and which are simply needing SNF level care at that point, i.e. Why is she not stable for transfer out of hospital at this time (Reviewers aren't allowed to infer your thinking - attg must spell it out.) - WIth these add'l info documented, pt should be appropriate for Inpt status by Medicare criteria. Info from non-drs involved in case, which attg could include & comment on in his notes r.e. what he considers concerning/pertinent: - 78yo female who underwent TKAs in 2017 & 2018 (usually quite functional, walked stairs the day after her TKA in March), [place] to get [place]. 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 Stopped gabapentin 08/22 due to hallucinations developing, but continued baclofen until adm. Developed urinary incontinence. Pain cont'd to worsen 'til unable to walk even w/walker, or even bear wt. Found to have tremendously high TSH 24.8, very low T3 & T4, severe HTN (?due to pain or ...?), but CK WNL. Tender legs/thighs, having hallucinations, urinary retention -> 730ml urine w/cath at 10:40 on 08/25. - Today, 08/27, nurse verbally reports pt is still having hallucinations, & has needed Hanks placed (11:01AM) due to urinary retention. - Nursing notes indicate pt was oriented to person & place on 08/26 AM, but less oriented - only to person - on 08/27 AM. - Nursing note 08/27 AM prior to MRI head states "per , very confused today". - PT on 08/26 found pt only able to stand, not take steps. "Generalized muscle weakness", Pain was 5/5 on 08/26 BLEs & worsened w/movement, Rt hip ROM limited due to pain. - PT found pt less functional on 08/27 than on 08/26 - lethargic, unable to sit unsupported, now unable to stand at all, balance & endurance now poor instead of fair. - Pt given Ativan 0.5mg IV "NOW" on 08/26 at 17:00 - reason? - Pt given Ativan 1mg IV "NOW" on 08/27 at 11:00 for toleration of MRI head (claustrophobic) per nurse. Thanks for all you do! CK Per [employer]: Baclofen can produce adverse effects including [employer] depression, hallucinations (visual or auditory), drowsiness, dizziness, muscle weakness, confusion, impaired coordination, fatigue, ataxia, constipation, resp dep, hypotension. Gabapentin can produce adverse effects including somnolence, ataxia, fatigue, abnormal thinking, amnesia, constipation, back pain, dizziness, tremor, nystagmus. Prednisone can cause steroid myopathy, steroid psychosis, HTN, dizziness/vertigo. Hypothyroidism can produce fatigue, constipation, myopathy (including proximal muscle weakness, cramps, myalgias, high CK), cognitive dysfunction, disorientation, peripheral neuropathy, among other things.
[2019-08-27] MEDS: KETOROLAC TROMETHAMINE INJ/PF 30 MG/1 ML SDV IV PRN (18:49)
[2019-08-28 03:59] LABS: APPEARANCE,URINE CLEAR; BILIRUBIN,URINE NEGATIVE (NEGATIVE); COLOR,URINE AMBER; GLUCOSE, URINE NEGATIVE (NEGATIVE); KETONES,URINE NEGATIVE (NEGATIVE); LEUKOCYTE ESTERASE,URINE SMALL (NEGATIVE); NITRITE,URINE NEGATIVE (NEGATIVE); PROTEIN,URINE NEGATIVE (NEGATIVE); URINE SPECIFIC GRAVITY 1.026
[2019-08-28] MEDS: HEPARIN SOD (PORCINE) 5,000 UNIT/ML 1 ML VIAL SUBCUT SCH (05:17)
[2019-08-28 06:43] LABS: ABSOLUTE EOSINOPHILS # (AUTO) 0.4 10^3/uL (0.0-0.6); ABSOLUTE LYMPHOCYTES (AUTO) 1.3 10^3/uL (0.5-4.7); ABSOLUTE MONOCYTES (AUTO) 0.8 10^3/uL (0.1-1.4); ABSOLUTE NEUT (AUTO) 5.8 10^3/uL (1.7-8.2); BASOPHILS % (AUTO) 0.6 % (0-2); EOSINOPHILS % (AUTO) 5.3 % (0-6); HEMATOCRIT 36.6 % (36.0-47.0); HEMOGLOBIN 12.7 g/dL (12.0-15.5); LYMPHOCYTES % (AUTO) 15.7 % (13-45); MEAN CORPUSCULAR HEMOGLOBIN 30.4 pg (27.0-33.4); MEAN CORPUSCULAR HGB CONC 34.7 g/dL (32.0-36.0); MEAN CORPUSCULAR VOLUME 87 fl (80-97); MONOCYTES % (AUTO) 9.4 % (3-13); PLATELET COUNT 306 10^3/uL (150-450); RED BLOOD COUNT 4.18 10^6/uL (3.72-5.28); RED CELL DISTRIBUTION WIDTH 14.7 % (11.5-14.0); TOTAL CELLS COUNTED % (AUTO) 100 %; WHITE BLOOD COUNT 8.4 10^3/uL (4.0-10.5)
[2019-08-28 07:05] LABS: ALBUMIN 3.2 g/dL (3.5-5.0); ALKALINE PHOSPHATASE 85 U/L (38-126); ANION GAP 11 (5-19); ASPARTATE AMINO TRANSFERASE 24 U/L (14-36); BILIRUBIN,DIRECT 0.1 mg/dL (0.0-0.4); BILIRUBIN,TOTAL 0.9 mg/dL (0.2-1.3); BLOOD UREA NITROGEN 22 mg/dL (7-20); CALCIUM 8.6 mg/dL (8.4-10.2); CARBON DIOXIDE 24 mmol/L (22-30); CHLORIDE 100 mmol/L (98-107); GLUCOSE 85 mg/dL (75-110); POTASSIUM 3.8 mmol/L (3.6-5.0); TOTAL PROTEIN 5.9 g/dL (6.3-8.2)
[2019-08-28] MEDS: LEVOTHYROXINE SODIUM 0.1 MG TABLET PO SCH (07:55)
[2019-08-28] MEDS: LEVOTHYROXINE SODIUM 0.075 MG TABLET PO SCH (07:55)
[2019-08-28] MEDS: DOCUSATE SODIUM 100 MG CAPSULE PO SCH (09:38)
[2019-08-28] MEDS: CHOLECALCIFEROL (D3) 1,000 UNIT (25 MCG) TABLET PO SCH (09:38)
[2019-08-28] MEDS: AMLODIPINE BESYLATE 5 MG TABLET PO SCH (09:38)
[2019-08-28] MEDS: LIDOCAINE 5% (700 MG) TRANSDERMAL ADH..PATCH TP SCH (09:39)
[2019-08-28] MEDS: LISINOPRIL 10 MG TABLET PO SCH (09:39)
[2019-08-28] MEDS: KETOROLAC TROMETHAMINE INJ/PF 30 MG/1 ML SDV IV PRN (09:41)
--- NOTE | 2019-08-28 12:11 | PDOC TRANSFER SUMMARY ---
General Admission Date/PCP: 08/25/19 19:58 SHOSHANA RIGGS NP Resuscitation Status: Full Code - Transfer Diagnosis (1) Altered mental status Is this a current diagnosis for this admission?: Yes (2) Hypertensive urgency Is this a current diagnosis for this admission?: Yes (3) Hypothyroidism Is this a current diagnosis for this admission?: Yes (4) DJD (degenerative joint disease) Is this a current diagnosis for this admission?: Yes (5) Ambulatory dysfunction Is this a current diagnosis for this admission?: Yes (6) Urinary retention Is this a current diagnosis for this admission?: Yes (7) Cholelithiasis Is this a current diagnosis for this admission?: Yes - Transfer Medications Home Medications: Baclofen [Baclofen 10 mg Tablet] 10 mg PO TID 08/26/19 Gabapentin [Neurontin 300 mg Capsule] 300 mg PO Q8 08/26/19 Levothyroxine Sodium [Synthroid] 175 mcg PO Q6AM 08/26/19 Transfer Medications: Current Medications Acetaminophen (Tylenol 325 Mg Tablet) 650 mg PO Q4HP PRN PRN Reason: FOR PAIN OR TEMP Stop: 09/24/19 19:49 Al Hydrox/Mg Hydrox/Simethicone (Maalox Plus Susp 30 Udcup) 30 ml PO Q6HP PRN PRN Reason: HEARTBURN Stop: 09/24/19 19:49 Amlodipine Besylate (Norvasc 5 Mg Tablet) 5 mg PO DAILY CORDELL Stop: 09/26/19 09:59 Last Admin: 08/28/19 09:38 Dose: 5 mg Documented by: Cholecalciferol (Vitamin D3 1000 Unit Tablet) 2,000 unit PO DAILY CORDELL Stop: 09/26/19 09:59 Last Admin: 08/28/19 09:38 Dose: 2,000 unit Documented by: Docusate Sodium (Colace 100 Mg Capsule) 100 mg PO BID CORDELL Stop: 09/24/19 20:59 Last Admin: 08/28/19 09:38 Dose: 100 mg Documented by: Heparin Sodium (Porcine) (Heparin Inj 5,000 Units/Ml 1 Ml Vial) 5,000 unit SUBCUT Q8 CORDELL Stop: 09/24/19 21:59 Last Admin: 08/28/19 05:17 Dose: 5,000 unit Documented by: Hydralazine HCl (Apresoline Inj/Pf 20 Mg/1 Ml Sdv) 10 mg IV Q6HP PRN PRN Reason: Sbp>160 Stop: 09/24/19 19:53 Last Admin: 08/26/19 09:16 Dose: 10 mg Documented by: Ketorolac Tromethamine (Toradol Inj/Pf 30 Mg/1 Ml Sdv) 15 mg IV Q6HP PRN PRN Reason: FOR PAIN SCALE 3-5 Stop: 08/30/19 19:49 Last Admin: 08/28/19 09:41 Dose: 15 mg Documented by: Levothyroxine Sodium (Synthroid 0.1 Mg Tablet) 0.1 mg PO QAM CORDELL Stop: 09/25/19 07:59 Last Admin: 08/28/19 07:55 Dose: 0.1 mg Documented by: Levothyroxine Sodium (Synthroid 0.075 Mg Tablet) 0.075 mg PO QAM COUNTS INCLUDE 234 BEDS AT THE [facility] Stop: 09/25/19 07:59 Last Admin: 08/28/19 07:55 Dose: 0.075 mg Documented by: Lidocaine (Lidoderm 5% (700 Mg) Transdermal Patch) 2 patch TP DAILY CORDELL Stop: 09/25/19 13:59 Last Admin: 08/28/19 09:39 Dose: 2 patch Documented by: Lisinopril (Prinivil 10 Mg Tablet) 40 mg PO DAILY CORDELL Stop: 09/25/19 09:59 Last Admin: 08/28/19 09:39 Dose: 40 mg Documented by: Magnesium Hydroxide (Milk Of Magnesia 30 Ml Udcup) 30 ml PO HSP PRN PRN Reason: FOR CONSTIPATION Stop: 09/24/19 19:49 Meclizine HCl (Antivert 12.5 Mg Tablet) 12.5 mg PO Q8HP PRN PRN Reason: DIZZINESS Stop: 09/25/19 14:33 - Allergies Allergies/Adverse Reactions: No Known Allergies Allergy (Unverified 08/25/19 09:47) Hospital Course Hospital Course: (1) Altered mental status Significant improvement. Patient back to baseline. Acute toxic encephalopathy encephalopathy with perceptual hallucination most likely caused by by recent initiation of baclofen and gabapentin for back pain. She keeps saying that she feels like she is going to fall while laying supine in bed At baseline patient is ambulatory and being in independent life. TSH on presentation 24. Unsure if this could be the reason for her altered mental status. On physical examination no vertigo or any focal neurological deficits appreciated. CTA/MRI/MRA head negative for any acute changes except for chronic ischemic changes. Patient was started on fall, seizure precaution and baclofen and gabapentin were held. Patient was also complaining of being anxious, 0.5 mg of IV Ativan was given with no significant improvement of her anxiety. She also received 1 mg of IV Ativan prior to MRI/MRI head due to claustrophobia. (2) Hypertensive urgency Improving. Not optimized with improving since admission. Home meds are lisinopril 40 mg p.o. daily. Started on CARMELA inhibitor 40 mg daily, amlodipine 5 mg daily. Received 1 dose of hydralazine today. Systolic blood pressure on discharge 120. Please continue monitoring vitals, medication be to be readjusted as needed. Follow-up with PCP as outpatient. (3) Hypothyroidism Patient endorses remote history of thyroidectomy x >30 years. Does not remember if she had cancer or not. TSH 24.8, free T4 0.38, free T3 1.42. Patient reports compliance not sure if she is taking it properly. Stating TSH in April was around 10. Home meds are: Levothyroxine 175 MCG. Restart home meds. Outpatient PCP and endocrinology follow-up Patient is to follow-up with PCP for readjustment of her levothyroxine and thyroid function studies. (4) DJD (degenerative joint disease) 08/25/2019. MRI lumbar spine: Multilevel chronic degenerative changes. No acute findings. No high-grade stenosis. No sign of cauda equina syndrome. Was started on PT/OT with topical lidocaine patches with significant improvement of her pain and mobility. Received physical therapy as inpatient, with max assist. Still needs further rehab Patient will greatly benefit from outpatient pain management for possible steroid injection. Please continue physical therapy as well as topical lidocaine patches as needed, avoid opiates, baclofen, gabapentin DEEP SEA DIVER affecting meds. 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 At Baseline patient is ambulatory, however patient is ambulatory baseline patient is ambulatory however with slow gait Mild improvement since admission. Patient able to set up and move her bilateral lower extremity without any significant pain. Left lower extremity has generalized tenderness on palpation. Plan as per #4. (6) Urinary retention Acute urinary retention. Likely drug-related. Patient denies any history of UTI or urinary retention. Patient had bladder scan which showed >700 ml. Hanks catheter was placed. Patient will be discharged on Hanks catheter as she is ready to be transferred to rehab. Continue Hanks care. Remove once appropriate. Patient will need bladder training before remove Hanks cath and urology follow- up/consult if persistent urinary retention. (7) Cholelithiasis Incidental finding on abdominal US. She made aware counseled on possible future cholecystectomy. She has stated that she does not want any intervention at this point. No sign of acute cholecystitis. Physical Exam Vital Signs: Temp Pulse Resp BP Pulse Ox 98.0 F 63 14 164/65 H 95 08/28/19 07:43 08/28/19 07:43 08/28/19 07:43 08/28/19 07:43 08/28/19 07:43 Intake & Output 08/27/19 08/28/19 08/29/19 06:59 06:59 06:59 Intake Total 702 1257 Output Total 200 1550 Balance 502 -293 Weight 76.6 kg 72.5 kg General appearance: PRESENT: no acute distress, well-developed, well-nourished Head exam: PRESENT: atraumatic, normocephalic Respiratory exam: PRESENT: clear to auscultation young. ABSENT: rales, rhonchi, wheezes Cardiovascular exam: PRESENT: RRR. ABSENT: diastolic murmur, rubs, systolic murmur GI/Abdominal exam: PRESENT: normal bowel sounds, soft. ABSENT: distended, guarding, mass, organolmegaly, rebound, tenderness Extremities exam: PRESENT: full ROM - Motion limited by back pain. Able to sit and flex bilateral lower extremity without any significant back pain. Ne urovascularly intact., tenderness - Left lower extremity diffuse tenderness.. ABSENT: calf tenderness, clubbing, pedal edema Neurological exam: PRESENT: alert, awake, oriented to person, oriented to place, oriented to time, oriented to situation, CN II-XII grossly intact. ABSENT: motor sensory deficit Results Laboratory Results: 08/28/19 06:24 08/28/19 06:24 08/28/19 08/28/19 08/28/19 03:40 06:24 06:24 WBC 8.4 RBC 4.18 Hgb 12.7 Hct 36.6 MCV 87 MCH 30.4 MCHC 34.7 RDW 14.7 H Plt Count 306 Seg Neutrophils % 69.0 Sodium 134.6 L Potassium 3.8 Chloride 100 Carbon Dioxide 24 Anion Gap 11 BUN 22 H Creatinine 0.80 Est GFR ( Amer) > 60 Glucose 85 Calcium 8.6 Magnesium 2.2 Total Bilirubin 0.9 AST 24 Alkaline Phosphatase 85 Total Protein 5.9 L Albumin 3.2 L TSH Urine Color SHERRI Urine Appearance CLEAR Urine pH 5.0 Ur Specific [place] 1.026 Urine Protein NEGATIVE Urine Glucose (UA) NEGATIVE Urine Ketones NEGATIVE Urine Blood SMALL H Urine Nitrite NEGATIVE Ur Leukocyte Esterase SMALL H Urine WBC (Auto) 5 Urine RBC (Auto) 8 08/28/19 06:24 WBC RBC Hgb Hct MCV MCH MCHC RDW Plt Count Seg Neutrophils % Sodium Potassium Chloride Carbon Dioxide Anion Gap BUN Creatinine Est GFR ( Amer) Glucose Calcium Magnesium Total Bilirubin AST Alkaline Phosphatase Total Protein Albumin TSH 45.20 H Urine Color Urine Appearance Urine pH Ur Specific [place] Urine Protein Urine Glucose (UA) Urine Ketones Urine Blood Urine Nitrite Ur Leukocyte Esterase Urine WBC (Auto) Urine RBC (Auto) 08/25/19 08/25/19 11:59 11:59 Creatine Kinase 86 CK-MB (CK-2) 3.13 Impressions: Lumbar Spine MRI 08/25/19 14:22 IMPRESSION: 1. MULTILEVEL CHRONIC DEGENERATIVE CHANGES DESCRIBED. NO APPARENT ACUTE FINDINGS. NO HIGH-GRADE STENOSIS. 2. GALLBLADDER APPEARS SOMEWHAT DISTENDED WITH A LARGE GALLSTONE. NOT COMPLETELY IMAGED. Abdomen Ultrasound 08/25/19 16:43 IMPRESSION: Multiple large gallstones measuring up to 2.5 cm. Moderate sludge. Normal gallbladder wall thickness. No pericholecystic fluid. Fatty liver. Head CT 08/26/19 00:00 IMPRESSION: MILD CHRONIC MICROVASCULAR ISCHEMIA. NO ACUTE IMAGING FINDINGS IN THE BRAIN. EVIDENCE OF ACUTE STROKE: NO. Brain MRI with MRA 08/27/19 00:00 IMPRESSION: NORMAL MRA OF THE [place] OF SEARS. Head MRI 08/27/19 00:00 IMPRESSION: Age-appropriate MRI of the brain without contrast. EVIDENCE OF ACUTE STROKE: NO. Plan Discharge Plan: Continue rehab. Follow-up with PCP for evaluation of TSH and readjustment of thyroid meds, and blood pressure medication. Follow-up with pain management outpatient for possible steroid injection. If urinary retention persists follow-up with urologist as outpatient. Time Spent: Greater than 30 Minutes
[2019-08-28 12:29] VITALS: BP 176/73
[2019-08-28] MEDS: HYDRALAZINE HCL INJ/PF 20 MG/1 ML SDV IV PRN (12:36)
[2019-08-28] MEDS ORDERED: AMLODIPINE BESYLATE 5 MG TABLET PO ONE (13:30)
[2019-08-28] MEDS ORDERED: PHARMACY COMMUNICATION ORDER MC SCH (22:00)
== END 2019-08-28 14:09 | DRG 304 ==
LOC: ER 09:31 → EH 19:58 → OBSVTOIN 19:58 → 5 21:54
PROVIDERS: ADMIT Internal Medicine; ATTEND Internal Medicine
DX: I16.0 Hypertensive urgency (principal); G92 Toxic encephalopathy; T42.8X5A Adverse effect of antiparkinsonism drugs and other central muscle-tone depressants, initial encounter; T42.6X5A Adverse effect of other antiepileptic and sedative-hypnotic drugs, initial encounter; M15.9 Polyosteoarthritis, unspecified; I10 Essential (primary) hypertension; M19.90 Unspecified osteoarthritis, unspecified site; E03.9 Hypothyroidism, unspecified; M54.5 Low back pain; Z96.653 Presence of artificial knee joint, bilateral; Z82.49 Family history of ischemic heart disease and other diseases of the circulatory system; R26.9 Unspecified abnormalities of gait and mobility; K80.20 Calculus of gallbladder without cholecystitis without obstruction; R33.9 Retention of urine, unspecified; E89.0 Postprocedural hypothyroidism; Z79.899 Other long term (current) drug therapy
CPT/HCPCS: 36415; 51701; 70450; 70544; 70551; 72148; 76705; 80053; 81001; 82306; 82550; 82553; 82962; 83735; 84439; 84443; 84481; 85025; 87086; 99285; J0360; J1644; J1885; J2060; J3490